=== PATIENT | male | born 1960 | race Hispanic/Latino ===

== ENCOUNTER 2021-05-11 12:54 | Emergency (ER) | payer OTHER ==
[~2021-05-11] VITALS: Ht 185.4 cm; Wt 84.8 kg
[2021-05-11 13:41] LABS: BASOPHILS # (AUTO) 0.1 (0.0-0.1); BASOPHILS % 1.9 % (0.0-1.0); EOSINOPHILS # (AUTO) 0.1 (0.0-0.4); EOSINOPHILS % 1.9 % (0.0-6.0); HEMATOCRIT 40.8 % (38.2-49.6); HEMOGLOBIN 13.2 g/dL (14.0-18.0); LYMPHOCYTES # (AUTO) 0.7 (1.0-3.2); LYMPHOCYTES % 16.9 % (18.0-39.1); MEAN CORPUSCULAR HEMOGLOBIN 29.5 pg (28-32); MEAN CORPUSCULAR HGB CONC 32.4 g/dL (31-35); MEAN CORPUSCULAR VOLUME 91.1 fL (81-99); MONOCYTES # (AUTO) 0.4 (0.2-0.8); MONOCYTES % 8.6 % (4.4-11.3); NEUTROPHILS % 70.5 % (38.7-80.0); PLATELET COUNT 349 x10e3/uL (140-360); RED BLOOD COUNT 4.48 x10e6/uL (4.3-5.7); RED CELL DISTRIBUTION WIDTH 19.2 % (11.7-14.4)
[2021-05-11 13:58] LABS: ALBUMIN 2.2 g/dL (3.5-5.0); ALBUMIN/GLOBULIN RATIO 0.5 (0.8-2.0); ANION GAP 14.2 mmol/L (8-16); CALCIUM 8.3 mg/dL (8.4-10.2); CREATININE, SERUM 0.72 mg/dL (0.72-1.25); POTASSIUM 4.2 mmol/L (3.5-5.1)
[2021-05-11] MEDS ORDERED: IOPAMIDOL 370 MG/ML 200 ML INFUS..BTL INJ ONE (14:35)
[2021-05-11] MEDS ORDERED: SODIUM CHLORIDE 0.9% 50ML 50 ML ONE (14:35)
[2021-05-11 15:10] LABS: CLARITY,URINE CLOUDY (CLEAR); COLOR,URINE AMBER (YELLOW); LEUKOCYTE ESTERASE ,URINE NEGATIVE (NEGATIVE); NITRITE,URINE POSITIVE (NEGATIVE)
[2021-05-11 15:11] LABS: KETONES,URINE TRACE (NEGATIVE); PROTEIN,URINE DIPSTICK 1+ (NEGATIVE); URINE UROBILINOGEN >=8 mg/dL (0.2 - 1)
[2021-05-11 15:16] LABS: BACTERIA,URINE MODERATE /HPF; EPITHELIAL CELLS,URINE FEW /LPF; MUCUS,URINE MANY (RARE); WBC,URINE (MAN) 21-50 /HPF (0-5)
[2021-05-11 17:12] VITALS: BP 117/85
== END 2021-05-11 17:14 | disposition home or self-care (01) ==
LOC: ER 12:59
DX: R52 Pain, unspecified (principal); R18.8 Other ascites; C22.8 Malignant neoplasm of liver, primary, unspecified as to type; N47.1 Phimosis; R33.9 Retention of urine, unspecified; E83.51 Hypocalcemia; D72.819 Decreased white blood cell count, unspecified; D64.9 Anemia, unspecified; I10 Essential (primary) hypertension; N50.89 Other specified disorders of the male genital organs
CPT/HCPCS: 36415; 74177; 76857; 80053; 81001; 85025; 87086; 87186; 93005; 99284; Q9967

== ENCOUNTER 2021-05-14 12:42 | Inpatient (IN) | payer OTHER ==
[~2021-05-14] VITALS: Ht 185.4 cm; Wt 84.8 kg
[2021-05-14 13:23] LABS: BASOPHILS # (AUTO) 0.1 (0.0-0.1); BASOPHILS % 1.8 % (0.0-1.0); EOSINOPHILS # (AUTO) 0.1 (0.0-0.4); EOSINOPHILS % 1.8 % (0.0-6.0); HEMATOCRIT 41.6 % (38.2-49.6); HEMOGLOBIN 13.4 g/dL (14.0-18.0); LYMPHOCYTES % 20.7 % (18.0-39.1); MEAN CORPUSCULAR HEMOGLOBIN 29.3 pg (28-32); MEAN CORPUSCULAR HGB CONC 32.2 g/dL (31-35); MEAN CORPUSCULAR VOLUME 90.8 fL (81-99); MONOCYTES # (AUTO) 0.4 (0.2-0.8); MONOCYTES % 8.2 % (4.4-11.3); NEUTROPHILS # (AUTO) 3.3 (2.1-6.9); NEUTROPHILS % 66.9 % (38.7-80.0); PLATELET COUNT 359 x10e3/uL (140-360); RED BLOOD COUNT 4.58 x10e6/uL (4.3-5.7); RED CELL DISTRIBUTION WIDTH 19.2 % (11.7-14.4)
[2021-05-14 13:29] LABS: INR 1.04
[2021-05-14 13:30] LABS: PARTIAL THROMBOPLASTIN TIME 29.6 seconds (23.8-35.5)
[2021-05-14 13:38] LABS: ALANINE AMINOTRANSFERASE 44 IU/L (0-55); ALBUMIN 2.1 g/dL (3.5-5.0); ALBUMIN/GLOBULIN RATIO 0.5 (0.8-2.0); ALKALINE PHOSPHATASE 679 IU/L (40-150); ANION GAP 14.7 mmol/L (8-16); BLOOD UREA NITROGEN 17 mg/dL (7-26); BUN/CREATININE RATIO 26 (6-25); CALCIUM 8.3 mg/dL (8.4-10.2); CARBON DIOXIDE 25 mmol/L (22-29); CHLORIDE 102 mmol/L (98-107); CREATINE KINASE 13 IU/L (30-200); CREATININE, SERUM 0.66 mg/dL (0.72-1.25); EST GLOMERULAR FILTRATION RATE 124 ML/MIN (60-); GLUCOSE 80 mg/dL (74-118); LIPASE 27 U/L (8-78); MAGNESIUM 1.7 MG/DL (1.3-2.1); POTASSIUM 4.7 mmol/L (3.5-5.1); SODIUM 137 mmol/L (136-145)
[2021-05-14] MEDS ORDERED: ALBUMIN 25% 12.5GM 50ML 100 ML IV ONE (14:36)
[2021-05-14] MEDS ORDERED: ONDANSETRON HCL INJ 2MG/ML 2ML 2 MG/ML VIAL IV PRN (15:00)
[2021-05-14 15:08] LABS: BODY FLUID APPEARANCE CLOUDY; BODY FLUID COLOR YELLOW; BODY FLUID TYPE PERITONEAL
[2021-05-14 15:09] LABS: RBC,BODY FLUID < 2000 cells/uL; WBC,BODY FLUID 1585 cells/uL
[2021-05-14] MEDS: METRONIDAZOLE 500MG/NS 100ML 100 ML IV SCH ×2 (15:24→21:15)
[2021-05-14] MEDS: CEFEPIME 2 GM in SODIUM CHLORIDE 0.9% 100 ML IV SCH (15:24)
[2021-05-14 16:15] LABS: LYMPHOCYTES,BODY FLUID 5 %; MONO/MACROPHG,BODY FLUID 19 %; NEUTROPHILS,BODY FLUID 76 %
[2021-05-14 17:26] VITALS: BP 122/81
[2021-05-14] MEDS: Morphine 2mg Syringe 2 MG/ML SYR IV PRN ×2 (18:06→21:15)
[2021-05-14 18:36] LABS: EOSINOPHILS % (MANUAL) 1 % (0-7); LYMPHOCYTES % (MANUAL) 17 % (19-48); MONOCYTES % (MANUAL) 6 % (3.4-9.0); NEUTROPHILS % (MANUAL) 71 % (40-74); PLATELET ESTIMATE ADEQUATE; PLATELET MORPHOLOGY COMMENT NORMAL; RBC MORPHOLOGY COMMENT NORMAL
[2021-05-14 19:49] VITALS: BP 115/85
[2021-05-14 20:00] VITALS: BP 115/85
[2021-05-14] MEDS ORDERED: SODIUM CHLORIDE 0.9% 250ML 250 ML ONE (20:09)
[2021-05-14] MEDS: FUROSEMIDE INJ 10 MG/ML 2 ML VIAL IV SCH (21:15)
[2021-05-15] VITALS (7 sets, daily range): BP systolic 92–112; BP diastolic 66–89
[2021-05-15] MEDS: CEFEPIME 2 GM in SODIUM CHLORIDE 0.9% 100 ML IV SCH ×2 (02:13→15:12)
[2021-05-15] MEDS: Morphine 2mg Syringe 2 MG/ML SYR IV PRN ×4 (02:13→20:00)
[2021-05-15] MEDS: METRONIDAZOLE 500MG/NS 100ML 100 ML IV SCH ×4 (05:08→22:06)
[2021-05-15 05:28] LABS: BASOPHILS # (AUTO) 0.1 (0.0-0.1); BASOPHILS % 2.2 % (0.0-1.0); EOSINOPHILS # (AUTO) 0.2 (0.0-0.4); EOSINOPHILS % 3.5 % (0.0-6.0); HEMATOCRIT 36.7 % (38.2-49.6); LYMPHOCYTES # (AUTO) 1.3 (1.0-3.2); LYMPHOCYTES % 26.5 % (18.0-39.1); MEAN CORPUSCULAR HEMOGLOBIN 29.3 pg (28-32); MEAN CORPUSCULAR HGB CONC 32.7 g/dL (31-35); MEAN CORPUSCULAR VOLUME 89.5 fL (81-99); MONOCYTES # (AUTO) 0.5 (0.2-0.8); MONOCYTES % 9.8 % (4.4-11.3); NEUTROPHILS # (AUTO) 2.8 (2.1-6.9); NEUTROPHILS % 57.2 % (38.7-80.0); PLATELET COUNT 323 x10e3/uL (140-360); RED CELL DISTRIBUTION WIDTH 19.1 % (11.7-14.4)
[2021-05-15 05:40] LABS: ALBUMIN/GLOBULIN RATIO 0.6 (0.8-2.0); ANION GAP 13.5 mmol/L (8-16); CALCIUM 7.9 mg/dL (8.4-10.2); CREATININE, SERUM 0.67 mg/dL (0.72-1.25); POTASSIUM 4.5 mmol/L (3.5-5.1)
[2021-05-15] MEDS ORDERED: FUROSEMIDE 20 MG TAB PO SCH (06:00)
[2021-05-15] MEDS: FUROSEMIDE INJ 10 MG/ML 2 ML VIAL IV SCH ×2 (08:41→16:18)
[2021-05-15] MEDS: SPIRONOLACTONE 25 MG TAB PO SCH ×2 (08:41→16:18)
[2021-05-15 10:40] LABS: EOSINOPHILS % (MANUAL) 3 % (0-7); LYMPHOCYTES % (MANUAL) 23 % (19-48); MONOCYTES % (MANUAL) 12 % (3.4-9.0); NEUTROPHILS % (MANUAL) 60 % (40-74)
[2021-05-15 10:41] LABS: ANISOCYTOSIS SLIGHT; HYPOCHROMASIA SLIGHT; PLATELET ESTIMATE ADEQUATE; PLATELET MORPHOLOGY COMMENT NORMAL; RBC MORPHOLOGY COMMENT ABNORMAL; TOXIC GRANULATION SLIGHT
[2021-05-15] MEDS ORDERED: CEFEPIME 2 GM VIAL ONE (14:48)
[2021-05-15] MEDS ORDERED: SODIUM CHLORIDE 0.9% 100 ML ONE (15:04)
[2021-05-15 17:50] LABS: CLARITY,URINE CLEAR (CLEAR); COLOR,URINE AMBER (YELLOW); KETONES,URINE NEGATIVE (NEGATIVE); LEUKOCYTE ESTERASE ,URINE NEGATIVE (NEGATIVE); NITRITE,URINE NEGATIVE (NEGATIVE); PROTEIN,URINE DIPSTICK NEGATIVE (NEGATIVE); URINE UROBILINOGEN 2 mg/dL (0.2 - 1)
[2021-05-15 18:01] LABS: BACTERIA,URINE RARE /HPF; MUCUS,URINE MODERATE (RARE)
[2021-05-16] VITALS (7 sets, daily range): BP systolic 93–107; BP diastolic 69–78
[2021-05-16] MEDS: CEFEPIME 2 GM in SODIUM CHLORIDE 0.9% 100 ML IV SCH ×2 (02:46→15:07)
[2021-05-16] MEDS: METRONIDAZOLE 500MG/NS 100ML 100 ML IV SCH ×3 (04:54→16:08)
[2021-05-16 05:02] LABS: BASOPHILS # (AUTO) 0.1 (0.0-0.1); BASOPHILS % 2.3 % (0.0-1.0); EOSINOPHILS # (AUTO) 0.2 (0.0-0.4); EOSINOPHILS % 3.8 % (0.0-6.0); HEMATOCRIT 36.5 % (38.2-49.6); HEMOGLOBIN 12.4 g/dL (14.0-18.0); LYMPHOCYTES % 21.4 % (18.0-39.1); MEAN CORPUSCULAR HEMOGLOBIN 29.4 pg (28-32); MEAN CORPUSCULAR VOLUME 86.5 fL (81-99); MONOCYTES # (AUTO) 0.4 (0.2-0.8); MONOCYTES % 9.2 % (4.4-11.3); NEUTROPHILS # (AUTO) 2.8 (2.1-6.9); NEUTROPHILS % 62.8 % (38.7-80.0); PLATELET COUNT 332 x10e3/uL (140-360); RED BLOOD COUNT 4.22 x10e6/uL (4.3-5.7); RED CELL DISTRIBUTION WIDTH 18.8 % (11.7-14.4)
[2021-05-16] MEDS: Morphine 2mg Syringe 2 MG/ML SYR IV PRN ×2 (05:17→14:22)
[2021-05-16 05:21] LABS: ALBUMIN/GLOBULIN RATIO 0.6 (0.8-2.0); ANION GAP 12.9 mmol/L (8-16); CALCIUM 7.8 mg/dL (8.4-10.2); CREATININE, SERUM 0.65 mg/dL (0.72-1.25); POTASSIUM 3.9 mmol/L (3.5-5.1)
[2021-05-16] MEDS: SPIRONOLACTONE 25 MG TAB PO SCH ×2 (08:31→16:09)
[2021-05-16] MEDS: FUROSEMIDE INJ 10 MG/ML 2 ML VIAL IV SCH ×2 (08:31→16:08)
[2021-05-17] MEDS: Morphine 2mg Syringe 2 MG/ML SYR IV PRN (00:12)
[2021-05-17] MEDS: METRONIDAZOLE 500MG/NS 100ML 100 ML IV SCH ×3 (00:12→09:33)
[2021-05-17 00:18] VITALS: BP 101/71
[2021-05-17] MEDS: CEFEPIME 2 GM in SODIUM CHLORIDE 0.9% 100 ML IV SCH ×2 (02:17→14:19)
[2021-05-17 05:24] VITALS: BP 99/75
[2021-05-17 05:57] LABS: BASOPHILS # (AUTO) 0.1 (0.0-0.1); BASOPHILS % 2.5 % (0.0-1.0); EOSINOPHILS # (AUTO) 0.2 (0.0-0.4); HEMATOCRIT 38.1 % (38.2-49.6); HEMOGLOBIN 12.7 g/dL (14.0-18.0); LYMPHOCYTES # (AUTO) 1.1 (1.0-3.2); LYMPHOCYTES % 26.9 % (18.0-39.1); MEAN CORPUSCULAR HEMOGLOBIN 29.1 pg (28-32); MEAN CORPUSCULAR HGB CONC 33.3 g/dL (31-35); MEAN CORPUSCULAR VOLUME 87.4 fL (81-99); MONOCYTES # (AUTO) 0.5 (0.2-0.8); MONOCYTES % 11.3 % (4.4-11.3); NEUTROPHILS # (AUTO) 2.1 (2.1-6.9); NEUTROPHILS % 53.5 % (38.7-80.0); PLATELET COUNT 329 x10e3/uL (140-360); RED BLOOD COUNT 4.36 x10e6/uL (4.3-5.7); RED CELL DISTRIBUTION WIDTH 18.7 % (11.7-14.4)
[2021-05-17 06:32] LABS: ALBUMIN/GLOBULIN RATIO 0.6 (0.8-2.0); ANION GAP 14.1 mmol/L (8-16); CALCIUM 7.9 mg/dL (8.4-10.2); CREATININE, SERUM 0.7 mg/dL (0.72-1.25); POTASSIUM 4.1 mmol/L (3.5-5.1)
[2021-05-17 07:55] VITALS: BP 108/78
[2021-05-17 08:23] VITALS: BP 108/78
[2021-05-17] MEDS: SPIRONOLACTONE 25 MG TAB PO SCH (08:54)
[2021-05-17] MEDS: FUROSEMIDE INJ 10 MG/ML 2 ML VIAL IV SCH (08:54)
[2021-05-17 11:10] VITALS: BP 95/74
[2021-05-17] MEDS ORDERED: METRONIDAZOLE500 MG PO (14:28)
[2021-05-17] MEDS ORDERED: KEFLEX125 MG/5 M PO (14:28)
[2021-05-17] MEDS ORDERED: ULTRAM50 MG PO (14:39)
[2021-05-17 14:59] VITALS: BP 97/73
== END 2021-05-17 15:48 | disposition home or self-care (01) | DRG 436 ==
LOC: ER 13:04 → ERHOLD 15:04 → IMCU 15:50
PROVIDERS: ADMIT Internal Medicine; ATTEND Internal Medicine
PROC: 0W9G3ZZ Drainage of Peritoneal Cavity, Percutaneous Approach (ICD-10-PCS; principal; 2021-05-14)
DX: C22.0 Liver cell carcinoma (principal); R18.8 Other ascites; B18.2 Chronic viral hepatitis C; I10 Essential (primary) hypertension; K74.60 Unspecified cirrhosis of liver; F17.200 Nicotine dependence, unspecified, uncomplicated; R30.0 Dysuria; N50.89 Other specified disorders of the male genital organs; Z20.822 Contact with and (suspected) exposure to COVID-19
CPT/HCPCS: 36415; 49083; 71045; 74470; 80053; 81001; 82550; 82553; 83690; 83735; 84157; 84484; 85025; 85610; 85730; 86850; 86900; 87040; 87070; 87086; 87205; 88112; 88305; 89051; 93306; 99284; C1729; J0692; J1940; J2270; J2405; J7050; U0002

== ENCOUNTER 2021-06-24 13:57 | Emergency (ER) | payer OTHER ==
[~2021-06-24] VITALS: Ht 185.4 cm; Wt 84.8 kg
[~2021-06-24 13:57] MED LIST: KEFLEX125 MG/5 M PO; METRONIDAZOLE500 MG PO; ULTRAM50 MG PO
== END 2021-06-24 14:38 | disposition home or self-care (01) ==
LOC: ER 14:02
DX: R18.8 Other ascites (principal); K74.60 Unspecified cirrhosis of liver; C22.0 Liver cell carcinoma
CPT/HCPCS: 99282